=== PATIENT | male | born 1975 | race Caucasian/White ===

== ENCOUNTER 2019-11-17 13:55 | Emergency (ER) | payer SELFPAY ==
[2019-11-17] MEDS ORDERED: COZAAR25 MG (14:16)
[2019-11-17] MEDS ORDERED: METOPROLOL TART50 MG (14:17)
[2019-11-17] MEDS ORDERED: CLARITIN 10 MG10 MG PO (16:43)
[2019-11-17 17:06] VITALS: BP 155/94
== END 2019-11-17 17:07 | disposition home or self-care (01) ==
LOC: D.ER 13:55
DX: J32.9 Chronic sinusitis, unspecified (principal); H69.90 Unspecified Eustachian tube disorder, unspecified ear; I10 Essential (primary) hypertension; R05 Cough; R42 Dizziness and giddiness